=== PATIENT | female | born 1975 | race African-American/Black ===

== ENCOUNTER 2021-12-18 14:31 | Observation (INO) ==
[2021-12-18] MEDS ORDERED: ONDANSETRON 4 MG/2 ML VIAL IV ONE (16:45)
[2021-12-18] MEDS ORDERED: SODIUM CHLORIDE 0.9% 1,000 ML IV STA ×2 (16:45→17:55)
[2021-12-18 17:12] LABS: Basophils % 0.3 % (0.0-0.8); Eosinophils # 0.2 10*3/uL (0.0-0.87); Eosinophils % 2.9 % (0.00-10.9); Hematocrit 37.7 VOL% (35.7-47.0); Hemoglobin 12.4 GM/DL (12.0-16.0); Immature Granulocytes % 0.3 %; Immature Granulocytes Absolute 0.02 #; Lymphocytes # 2.1 10*3/uL (1.4-4.0); Lymphocytes % 26.7 % (21.3-54.2); Mean Corpuscular HGB Conc 32.9 GM/DL (32-36); Mean Corpuscular Volume 85.9 FL (87-102); Mean Platelet Volume 10.7 FL (9.6-12.0); Monocytes # 0.6 10*3/uL (0.11-0.8); Monocytes % 8.1 % (1.7-12.7); Neutrophils % 61.7 % (38.7-73.9); Platelet Count 259 T/CUMM (130-400); Red Blood Count 4.39 MC/CUMM (3.8-5.5); Red Cell Distribution Width 13.1 % (9.3-17.3); White Blood Count 7.8 T/CUMM (4-12)
[2021-12-18 17:30] LABS: Albumin 3.6 G/DL (3.4-5.0); Bilirubin,Total 0.8 MG/DL (0.20-1.00); Calcium 9.7 MG/DL (8.5-10.1); Osmolality,Calculated 288.7 MOS/KG (273-304); Potassium 3.9 MMOL/L (3.5-5.1); Total Protein 8.6 G/DL (6.4-8.2)
[2021-12-18 18:51] LABS: Glucose,Urine (UA) 100 mg/dL (Negative); Ketones,Urine Trace mg/dL (Negative); Protein,Urine Negative (Negative); Urine Appearance Clear (Clear); Urine Color Yellow (Yellow)
[2021-12-18 18:52] LABS: Bilirubin,Urine Negative (Negative); Blood, Urine Negative (Negative); Nitrite,Urine Negative (Negative); Urine Urobilinogen 0.2 eU/dL (<2.0)
[2021-12-18 18:53] LABS: Bacteria,Urine Occasional /HPF (Few); Mucus,Urine Occasional /LPF (Occasional); RBC,Urine 2 /HPF (0-4); Squamous Epithelial Cell,Urine Occasional /HPF (0-10)
[2021-12-18] MEDS ORDERED: ACETAMINOPHEN 325 MG TABLET PO PRN (19:25)
[2021-12-18] MEDS ORDERED: GLUCAGON 1 MG VIAL IM PRN (19:25)
[2021-12-18] MEDS ORDERED: DEXTROSE 10% 250 ML BAG IV PRN (19:31)
[2021-12-18] MEDS: INSULIN REGULAR 100 UNIT/ML SUBCUT SCH (21:46)
[2021-12-18] MEDS: DEXTROSE 5% LACTATED RINGERS 1,000 ML IV SCH (21:50)
[2021-12-18] MEDS: ONDANSETRON 4 MG/2 ML VIAL IV PRN (22:26)
[2021-12-19] MEDS: ONDANSETRON 4 MG/2 ML VIAL IV PRN (04:19)
[2021-12-19 06:20] LABS: Basophils % 0.1 % (0.0-0.8); Eosinophils # 0.2 10*3/uL (0.0-0.87); Eosinophils % 2.6 % (0.00-10.9); Hematocrit 33.5 VOL% (35.7-47.0); Hemoglobin 11.1 GM/DL (12.0-16.0); Immature Granulocytes % 0.3 %; Immature Granulocytes Absolute 0.02 #; Lymphocytes # 1.7 10*3/uL (1.4-4.0); Lymphocytes % 24.5 % (21.3-54.2); Mean Corpuscular HGB Conc 33.1 GM/DL (32-36); Mean Corpuscular Volume 85.7 FL (87-102); Mean Platelet Volume 10.3 FL (9.6-12.0); Monocytes # 0.6 10*3/uL (0.11-0.8); Monocytes % 8.5 % (1.7-12.7); Platelet Count 219 T/CUMM (130-400); Red Blood Count 3.91 MC/CUMM (3.8-5.5); Red Cell Distribution Width 13.1 % (9.3-17.3); White Blood Count 6.9 T/CUMM (4-12)
[2021-12-19 06:35] LABS: Calcium 9.2 MG/DL (8.5-10.1); Osmolality,Calculated 289.5 MOS/KG (273-304); Potassium 3.7 MMOL/L (3.5-5.1)
[2021-12-19] MEDS: DEXTROSE 5% LACTATED RINGERS 1,000 ML IV SCH ×3 (06:57→21:51)
[2021-12-19] MEDS: INSULIN REGULAR 100 UNIT/ML SUBCUT SCH ×4 (08:14→20:31)
[2021-12-19] MEDS: PANTOPRAZOLE 40 MG TABLET PO SCH (08:14)
[2021-12-20] MEDS: DEXTROSE 5% LACTATED RINGERS 1,000 ML IV SCH (05:03)
[2021-12-20 07:58] VITALS: BP 133/70
[2021-12-20] MEDS: PANTOPRAZOLE 40 MG TABLET PO SCH (08:15)
[2021-12-20] MEDS: INSULIN REGULAR 100 UNIT/ML SUBCUT SCH (08:15)
== END 2021-12-20 12:20 | disposition home or self-care (01) ==
LOC: N.EDINP 14:31 → N.ED 14:31 → N.3E 20:39
PROVIDERS: ADMIT Surgery; ATTEND Surgery